=== PATIENT | female | born 1985 | race Caucasian/White ===

== ENCOUNTER 2023-10-09 21:12 | Outpatient (CLI) | payer MEDICAID, SELFPAY ==
--- NOTE | 2023-11-04 12:40 | W.PM.SLEEP ---
Sleep Study Details Details Interpreting Provider: Bri Date of Sleep Study: 10/09/23 Sleep Study Details: STUDY TYPE:? Hospital-based ? BMI:? 38.4 ORDERING PROVIDER:? Bri INDICATION:? Concerns about sleep apnea ? SLEEP SUMMARY:? 257 minutes total sleep time RESPIRATORY SUMMARY:? Mean oxygen awake 95 asleep 94, minimum 87 0.3 minutes oxygen between 80 and 88% AHI 8.2, with CMS guideline, utilizing rule 1 AHI is 31.5, nonsupine REM AHI is 40. Supine AHI is 20 PERIODIC LIMB MOVEMENTS OF SLEEP:? None were recorded CARDIAC:? Awake 76, asleep 70. No arrhythmias noted IMPRESSION:? Severe obstructive sleep apnea with supine position and REM dependency RECOMMENDATION: Trial of AutoSet CPAP pressure 4-17 would be reasonable. Weight loss is also recommended.
== END 2023-10-09 21:13 | disposition home or self-care (01) ==
PROVIDERS: PCP Student in an Organized Health Care Education/Training Program; Visit Provider Otolaryngology
DX: G47.33 Obstructive sleep apnea (adult) (pediatric) (principal)
CPT/HCPCS: 95810; A9270

== ENCOUNTER 2024-02-20 11:18 | Day surgery (SDC) | payer OTHER, SELFPAY ==
[2024-02-20] VITALS (18 sets, daily range): BP systolic 104–144; BP diastolic 64–95; PULSE 60–100; RESP 14–18; TEMP 36.1–36.7; O2SAT 94–98; BMI 40.6
[2024-02-20] MEDS: LACTATED RINGERS 1000 ML 1,000 ML 35 ML IV (11:50)
[2024-02-20] MEDS: SODIUM CHLORIDE 0.9 % (FLUSH) 10 ML SYRINGE IVF (12:18)
--- NOTE | 2024-02-20 13:48 | W.PM.ENTPROC ---
Procedure Note Date of procedure: 02/20/24 Procedure: Preop diagnosis chronic tonsillitis tonsillar hypertrophy Postoperative diagnosis same Procedure tonsillectomy Under general endotracheal anesthesia patient was prepped draped usual fashion. The McIvor mouth gag was inserted. We had to use paralytics to insert the gag and get enough opening to get at the tonsils. The right tonsil was removed the combination of needlepoint cautery and bipolar cautery. Bleeding was controlled with suction cautery. 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 The left tonsil was removed in a similar fashion. I let the mouthgag down frequently to allow circulation to the tongue as it was getting pinched quite hard. The patient procedure well was taken recovery in satisfactory condition blood loss was less than 10 mL. Surgeon: Jaime Gregory MD
--- NOTE | 2024-02-20 13:58 | W.ANESCHARGE ---
Anesthesia Charges Start Date/Time Anesthesia Start Date: 02/20/24 Anesthesia Start Time: 13:01 Stop Date/Time Anesthesia Stop Date: 02/20/24 Anesthesia Stop Time: 13:59
[2024-02-20] MEDS: fentaNYL 100 MCG/2 ML inj 50 MCG IVP ×2 (14:00→14:13)
[2024-02-20] MEDS: OXYCODONE 1 MG/ML ORAL SOLN 5 MG PO (14:56)
[2024-02-20] MEDS: ACETAMINOPHEN 160 MG/5 ML CUP 320 MG PO ×3 (14:58→22:37)
[2024-02-20] MEDS: NON-FORMULARY MEDICATION 21 EACH TOPICAL (16:07)
[2024-02-20] MEDS: IBUPROFEN 100 MG/5 ML SUSP 300 MG PO (16:15)
[2024-02-20] MEDS: OXYCODONE 1 MG/ML ORAL SOLN PO ×2 (16:15→19:37)
--- NOTE | 2024-02-20 16:35 | P.IMCN_ITS ---
Date of Consult Patient: [facility] Patient Consult date: 02/20/24 Requesting Physician: Other (ENT) Primary Care Provider: Sophia James MD Consult Narrative Narrative: Edwardo Vega is a 38 year old transgender male admitted to the hospital for tonsillectomy. Procedure performed by Dr. Gregory who requests consultation for management of medical problems. Intraoperatively he apparently had problems with bronchospasm. Postoperatively patient reports having throat pain consistent with his surgery today. He is having no trouble breathing. It is painful to swallow however. He is not aware of fever. He has no chest pain or cough. Preoperatively he reported feeling well. No recent respiratory illness. No problems with cough or sore throat or other respiratory symptoms. He does have a history of exercise-induced asthma. He uses an inhaler for episodes of exercise but otherwise does not have symptomatic asthma. No recent need for an inhaler. He does smoke cigarettes. He recently quit with a plan to use nicotine patch for replacement. He brought that with him. Previous surgery includes a partial thyroidectomy for a pre cancerous lesion in his thyroid. No operative complications or problems with anesthesia on that occasion. Review of Systems Narrative: No recent illness. No active medical concerns. [facility] Medical History (Updated 02/20/24 @ 16:47 by Gary Mota MD) Morbid obesity with BMI of 40.0-44.9, adult ?E66.01 - Morbid (severe) obesity due to excess calories (ICD-10) ?Z68.41 - Body mass index [BMI] 40.0-44.9, adult (ICD-10) Hyperlipidemia ?E78.5 - Hyperlipidemia, unspecified (ICD-10) Transgender man on hormone therapy ?F64.0 - Transsexualism (ICD-10) ?Z79.899 - Other [place] [facility] (current[facility] drug therapy (ICD-10) Smoking ?F17.200 - Nicotine dependence, unspecified, uncomplicated (ICD-10) Exercise-induced asthma ?J45.990 - Exercise induced bronchospasm (ICD-10) Overweight ?E66.3 - Overweight (ICD-10) Sleep apnea in adult ?G47.30 - Sleep apnea, unspecified (ICD-10) Surgical History (Updated 02/20/24 @ 16:47 by Gary Mota MD) Status post tonsillectomy ?Z90.89 - Acquired absence of other organs (ICD-10) H/O partial thyroidectomy ?E89.0 - Postprocedural hypothyroidism (ICD-10) Family History (Updated 02/20/24 @ 16:43 by Gary Mota MD) Father Heart disease Stroke Social History (Updated 02/20/24 @ 16:44 by Gary Mota MD) Narrative: He is a current smoker with a plan to quit. Has a nicotine patch. He occasionally drinks alcohol. What is your current living situation?: I presently have a place to live Problems where you live: no known problems In the past 12 months, utilities in danger of being shut off: no In past 12 months, lack of transportation kept you from medical appts, meetings, work, or getting things needed for daily living: no In the past 12 mos, have been you worried that your food would run out before you had money to buy more?: declined to answer In the past 12 mos, the food you bought just didn't last and you didn't have money to buy more?: declined to answer Highest level of school completed/degree received: some college, no degree Smoking Status: Current every day smoker What tobacco products do you use: cigarettes Smoking packs per day: 1 Smoking cigarettes per day: 20.0 Do you use any of these nicotine containing products: None How often do you have a drink containing alcohol: monthly or less How many standard drinks containing alcohol do you have on a typical day: 1 or 2 How often do you have six or more drinks on one occasion: Never AUDIT-C Alcohol total score: 1 Non-prescribed substance use: denies use Caffeine: Yes How often does anyone, including family, friends and others, physically hurt you : never How often does anyone, including family, friends and others, insult or talk down to you: never How often does anyone, including family, friends and others, threaten you with harm: never How often does anyone, including family, friends and others, scream or curse at you: never Little interest or pleasure in doing things: more than half the days Feeling down, depressed, or hopeless: more than half the days service: No Meds Home Medications and Allergies Home Medications ?Medication ?Instructions ?Recorded ?Confirmed ?Type albuterol sulfate 90 mcg/actuation 1 puff inhalation 10/28/23 02/05/24 History aerosol inhaler (Ventolin HFA) atorvastatin 20 mg tablet 20 mg PO DAILY 10/28/23 02/20/24 History levothyroxine 75 mcg tablet 75 mcg PO DAILY 10/28/23 02/20/24 History lisdexamfetamine 20 mg capsule 20 mg PO DAILY 10/28/23 02/20/24 History (Vyvanse) testosterone cypionate 200 mg/mL mg IM 10/28/23 02/05/24 History intramuscular oil Allergies Allergy/AdvReac Type Severity Reaction Status Date / Time hydromorphone Allergy Severe Hives Verified 02/20/24 11:34 tramadol Allergy Severe Hives Verified 02/20/24 11:34 morphine Allergy Unknown Hives Verified 02/20/24 11:34 gabapentin AdvReac Severe Dizziness Verified 02/20/24 11:34 Exam Narrative: Exam Narrative: He is alert and appears in mild discomfort with talking. Also appears to have discomfort with swallowing his own saliva. Eyes normal. Oropharynx with small airway, prominent tongue. I did not attempt to visualize the surgical area. Neck is supple with out mass or swelling. He has tenderness under the angle the mantle old bowl bilaterally. Respirations are clear to auscultation without wheezing. Good air exchange all lung lymph oakley. Cardiovascular: S1, S2, regular rate and rhythm. Abdomen: Bowel sounds active. Abdomen is soft without tenderness or mass. Skin is without rash. No edema. Intact peripheral pulses per Const: Vital Signs, click to edit/add: Vital Signs - 24 hr 02/20/24 12:02 02/20/24 13:55 02/20/24 14:00 Temperature 98.0 F 97.1 F L Pulse Rate 76 72 60 Respiratory Rate 16 15 16 Blood Pressure 104/72 144/69 H 128/73 Pulse Oximetry 98 95 96 Oxygen Delivery Me thod Room Air Room Air 02/20/24 14:05 02/20/24 14:10 02/20/24 14:15 Temperature Pulse Rate 61 63 70 Respiratory Rate 14 16 14 Blood Pressure 126/81 133/78 108/80 Pulse Oximetry 97 94 96 Oxygen Delivery Me thod 02/20/24 14:20 02/20/24 14:29 02/20/24 14:45 Temperature 97.0 F L 97.0 F L 97.0 F L Pulse Rate 75 65 65 Respiratory Rate 16 16 16 Blood Pressure 118/72 118/75 127/65 Pulse Oximetry 94 96 95 Oxygen Delivery Me thod Room Air 02/20/24 15:00 Temperature 97.1 F L Pulse Rate 71 Respiratory Rate 16 Blood Pressure 127/72 Pulse Oximetry 96 Oxygen Delivery Me thod Room Air Documenting provider has reviewed patient's vital signs: yes Assessment and Plan Assessment and plan (1) Status post tonsillectomy: Problem comment: Currently doing well. Monitor for airway problems Status: Acute (2) Exercise-induced asthma: Problem comment: Currently doing well. Monitor for breathing/airway problem Status: Acute (3) Smoking: Problem comment: Continue nicotine patch. Encourage abstinence. Status: Acute (4) Sleep apnea in adult: Problem comment: Failed CPAP Status: Acute (5) Morbid obesity with BMI of 40.0-44.9, adult: Status: Acute Plan Observe overnight in the hospital for respiratory problems. Total Time Spent Total Time Spent: Total time spent today is 40 minutes in evaluation and management
[2024-02-20] MEDS: ATORVASTATIN 10 MG TABLET 20 MG PO (20:48)
[2024-02-21] MEDS: OXYCODONE 1 MG/ML ORAL SOLN PO ×3 (00:25→09:21)
[2024-02-21 03:00] VITALS: BP 98/59; PULSE 73; RESP 18; TEMP 36.6; O2SAT 94
[2024-02-21] MEDS: ACETAMINOPHEN 160 MG/5 ML CUP 320 MG PO ×2 (03:40→09:21)
--- NOTE | 2024-02-21 06:04 | PC.NURSE ---
Shift note: Pt is post day 1. No frequent swallowing, external bleeding, or swelling. Pain level rated between 6 and 8 and pt requested pain medication at least every 4 hours. Ice pack applied to the neck. Alert and oriented, vitally stable. Ambulated independently in room.
[2024-02-21] MEDS: LEVOTHYROXINE 75 MCG TABLET PO (06:44)
[2024-02-21 07:30] VITALS: BP 118/78; PULSE 85; RESP 18; TEMP 36.8; O2SAT 98
[2024-02-21] MEDS: IBUPROFEN 100 MG/5 ML SUSP 300 MG PO (07:48)
--- NOTE | 2024-02-21 12:49 | PC.NURSE ---
PATIENT'S PAIN CONTROLLED WITH ALTERNATING TYLENOL, IBUPROFEN AND OXYCODONE. TOLERATING FULL LIQUID DIET WITH NO C/O N/V. UP AD YEMI IN ROOM. SALINE LOCK DC'D. REVIEWED DC INSTRUCTIONS WITH PATIENT AND HIS FIANCE AND QUESTIONS ANSWERED. PATIENT DC'D HOME.
== END 2024-02-21 11:38 | disposition home or self-care (01) ==
LOC: OR 11:19 → MEDSURG 11:21
PROVIDERS: PCP Student in an Organized Health Care Education/Training Program; Visit Provider Otolaryngology
PROC: (CPT 42826; principal; 2024-02-20 12:45)
DX: J35.01 Chronic tonsillitis (principal); J45.990 Exercise induced bronchospasm; G47.30 Sleep apnea, unspecified; E66.01 Morbid (severe) obesity due to excess calories; F17.210 Nicotine dependence, cigarettes, uncomplicated; Z68.41 Body mass index [BMI] 40.0-44.9, adult; F64.0 Transsexualism
CPT/HCPCS: 42826; 00170; 88304; A9270; J0171; J0330; J1100; J2250; J2405; J2704; J3010; J3490; J7120

== ENCOUNTER 2024-02-27 10:30 | Emergency (ER) | payer OTHER, SELFPAY ==
[2024-02-27 10:37] VITALS: BP 129/89; PULSE 97; RESP 16; TEMP 37; O2SAT 96; BMI 39.3
--- NOTE | 2024-02-27 11:01 | ED_ITS ---
HPI - General Adult General Chief complaint: Post Op Complication Stated complaint: Coughing blood s/p tonsillectomy Time Seen by Provider: 02/27/24 10:33 History of Present Illness HPI narrative: Patient comes after three separate incidences of bleeding follow his tonsillectomy last Friday. Does endorse pain in throat with swallowing 38-year-old female to male 1 week status post tonsillectomy. Has been experiencing some some intermittent bleeding in the throat. Has contacted ENT surgeon. Recommended to present to the emergency department for evaluation. Not having lightheadedness or difficulty breathing. Is having a good deal of pain as well. Concern of keeping up with fluids. Related Data Home Medications ?Medication ?Instructions ?Recorded ?Confirmed albuterol sulfate 90 mcg/actuation 1 puff inhalation 10/28/23 03/02/24 aerosol inhaler (Ventolin HFA) atorvastatin 20 mg tablet 20 mg PO DAILY 10/28/23 03/02/24 levothyroxine 75 mcg tablet 75 mcg PO DAILY 10/28/23 03/02/24 lisdexamfetamine 20 mg capsule 20 mg PO DAILY 10/28/23 03/02/24 (Vyvanse) testosterone cypionate 200 mg/mL mg IM 10/28/23 03/02/24 intramuscular oil Previous Rx's ?Medication ?Instructions ?Recorded ondansetron 4 mg disintegrating 4 mg PO Q8H #10 tabs 02/20/24 tablet oxycodone 5 mg/5 mL oral solution 5 mg (5 mL) PO Q4-6H PRN pain #200 02/20/24 mL oxycodone 5 mg tablet 5 mg PO Q4H PRN pain #30 tabs 02/27/24 Allergies Allergy/AdvReac Type Severity Reaction Status Date / Time hydromorphone Allergy Severe Hives Verified 03/02/24 11:05 tramadol Allergy Severe Hives Verified 03/02/24 11:05 morphine Allergy Unknown Hives Verified 03/02/24 11:05 gabapentin AdvReac Severe Dizziness Verified 03/02/24 11:05 Review of Systems Status of ROS: Reports: 6 or more systems reviewed and unremarkable except as noted in History and below [facility] Medical History Morbid obesity with BMI of 40.0-44.9, adult ?E66.01 - Morbid (severe) obesity due to excess calories (ICD-10) ?Z68.41 - Body mass index [BMI] 40.0-44.9, adult (ICD-10) Hyperlipidemia ?E78.5 - Hyperlipidemia, unspecified (ICD-10) Transgender man on hormone therapy ?F64.0 - Transsexualism (ICD-10) ?Z79.899 - Other [facility] (current) drug therapy (ICD-10) Smoking ?F17.200 - Nicotine dependence, unspecified, uncomplicated (ICD-10) Exercise-induced asthma ?J45.990 - Exercise induced bronchospasm (ICD-10) Overweight ?E66.3 - Overweight (ICD-10) Sleep apnea in adult ?G47.30 - Sleep apnea, unspecified (ICD-10) Surgical History Status post tonsillectomy ?Z90.89 - Acquired absence of other organs (ICD-10) H/O partial thyroidectomy ?E89.0 - Postprocedural hypothyroidism (ICD-10) Family History (Updated 02/20/24 @ 16:43 by Gary Mota MD) Father Heart disease Stroke Social History Narrative: He is a current smoker with a plan to quit. Has a nicotine patch. He occasionally drinks alcohol. What is your current living situation?: I presently have a place to live Problems where you live: no known problems In the past 12 months, utilities in danger of being shut off: no In past 12 months, lack of transportation kept you from medical appts, meetings, work, or getting things needed for daily living: no In the past 12 mos, have been you worried that your food would run out before you had money to buy more?: declined to answer In the past 12 mos, the food you bought just didn't last and you didn't have money to buy more?: declined to answer Highest level of school completed/degree received: some college, no degree Smoking Status: Current every day smoker What tobacco products do you use: cigarettes Smoking packs per day: 1 Smoking cigarettes per day: 20.0 Do you use any of these nicotine containing products: None How often do you have a drink containing alcohol: monthly or less How many standard drinks containing alcohol do you have on a typical day: 1 or 2 How often do you have six or more drinks on one occasion: Never AUDIT-C Alcohol total score: 1 Non-prescribed substance use: denies use Caffeine: Yes How often does anyone, including family, friends and others, physically hurt you : never How often does anyone, including family, friends and others, insult or talk down to you: never How often does anyone, including family, friends and others, threaten you with harm: never How often does anyone, including family, friends and others, scream or curse at you: never Little interest or pleasure in doing things: more than half the days Feeling down, depressed, or hopeless: more than half the days service: No Exam Narrative: Exam Narrative: Pleasant. Mildly anxious. Skin is warm and dry. Breathing easily. No stridor. Lungs appear to be clear. Heart in elevated rate but regular rhythm. Oropharyngeal exam is with cautery as expected in the tonsillar fossa area. I do not see active bleeding at this time. Mild edema/erythema. Const: Vital Signs, click to edit/add: Vital Signs - 24 hr 02/27/24 10:37 Temperature 98.6 F Pulse Rate [Pulse Oximeter] 97 Respiratory Rate 16 Blood Pressure [Ri ght Upper Arm] 129/89 Pulse Oximetry 96 Oxygen Delivery Me thod Room Air Documenting provider has reviewed patient's vital signs: yes Course Vital Signs Vital signs: Initial Vital Signs Temperature 98.6 F 02/27/24 10:37 Temperature Source Temporal Artery Scan 02/27/24 10:37 Pulse Rate 97 02/27/24 10:37 Respiratory Rate 16 02/27/24 10:37 Blood Pressure 129/89 02/27/24 10:37 Blood Pressure Mean 102 02/27/24 10:37 Pulse Oximetry 96 02/27/24 10:37 Oxygen Delivery Method Room Air 02/27/24 10:37 Vital Signs Temperature 98.6 F 02/27/24 10:37 Pulse Rate 97 02/27/24 10:37 Respiratory Rate 16 02/27/24 10:37 Blood Pressure 129/89 02/27/24 10:37 Pulse Oximetry 96 02/27/24 10:37 Oxygen Delivery Method Room Air 02/27/24 10:37 Temperature 98.6 F 02/27/24 10:37 Pulse Rate 97 02/27/24 10:37 Respiratory Rate 16 02/27/24 10:37 Blood Pressure 129/89 02/27/24 10:37 Pulse Oximetry 96 02/27/24 10:37 Oxygen Delivery Method Room Air 02/27/24 10:37 Medications Administered Medications: Discontinued Medications Generic Name Dose Route Start Last Admin Trade Name Ángel PRN Reason Stop Dose Admin Dexamethasone 5 mg 02/27/24 12:30 02/27/24 12:42 Dexamethasone 10 Mg/Ml Inj IVP 02/27/24 12:31 5 mg ONCE ONE Administration Hydromorphone HCl 0.5 mg 02/27/24 11:51 02/27/24 11:58 Hydromorphone 0.5 Mg/0.5 Ml Inj IVP 02/27/24 11:52 0.5 mg ONCE ONE Administration Sodium Chloride 1,000 mls @ 1,000 mls/hr 02/27/24 11:04 02/27/24 12:46 0.9 % Sodium Chloride 1000 Ml IV 02/27/24 12:03 Infused .Q1H ONE Infusion Medical Decision Making MDM Narrative Medical decision making narrative: Did discuss these findings with ENT surgeon with further recommendations. Sounds as though bleeding is light enough and has spontaneously ceased that will offer supportive treatment here. Hemoglobin checked as requested and looks good. Edwardo would appreciate some IV fluids and pain management. IV is established given normal saline and Dilaudid. Also per ENT recommendations a dose of dexamethasone. No further events during time in the emergency department. feels improved. See patient discharge plan for further discussion Medical Records Medical records reviewed: Yes I reviewed the patient's medical records Lab Data Lab results reviewed: Yes I reviewed the patient's lab results Labs: Lab Results 02/27/24 Range/Units 10:56 Hgb 13.8 (12.0-16.0) gm/dL Discharge Plan Discharge Clinical Impression: Post-operative pain, Dehydration Patient Disposition: Home w/ Parent or Adult Condition: Improved Instructions: Pain Management After Surgery (DC) Additional Instructions: Continue to focus on hydration. Jell-O counts as well. Hopefully you're through the worst of this soon. Of course be seen for persistent and increased bleeding. Prescriptions: No Action lisdexamfetamine [Vyvanse] 20 mg capsule 20 mg PO DAILY albuterol sulfate [Ventolin HFA] 90 mcg/actuation HFA aerosol inhaler 1 puff inhalation testosterone cypionate 200 mg/mL oil IM Patient Comments: 0.20mL LAST DOSE atorvastatin 20 mg tablet 20 mg PO DAILY levothyroxine 75 mcg tablet 75 mcg PO DAILY oxycodone 5 mg/5 mL solution 5 mg PO Q4-6H PRN (Reason: pain) Qty: 200 0RF ondansetron 4 mg tablet,disintegrating 4 mg PO Q8H Qty: 10 1RF oxycodone 5 mg tablet 5 mg PO Q4H PRN (Reason: pain) Qty: 30 0RF Follow Up/Referrals: Sophia James MD [Primary Care Provider] - Stand Alone Forms: [facility] Info Instructions
[2024-02-27 11:17] LABS: Hemoglobin* 13.8 gm/dL (12.0-16.0)
[2024-02-27] MEDS: 0.9 % SODIUM CHLORIDE 1000 ml 1,000 ML IV (11:58)
[2024-02-27] MEDS: HYDROmorphone 0.5 mg/0.5 ml inj IVP (11:58)
[2024-02-27] MEDS: dexAMETHasone 10 MG/ML inj 5 MG IVP (12:42)
== END 2024-02-27 13:08 | disposition home or self-care (01) ==
PROVIDERS: Emergency Provider Family Medicine; PCP Student in an Organized Health Care Education/Training Program
DX: G89.18 Other acute postprocedural pain (principal); E86.0 Dehydration
CPT/HCPCS: 36415; 85018; 96374; 96375; 99283; 99284; J1100; J1170; J7030